=== PATIENT | female | born 1945 | race Caucasian/White ===

== ENCOUNTER → 2020-08-08 07:01 | Outpatient (CLI) | payer MEDICARE, SELFPAY ==
[2020-08-08 20:54] LABS: SARS-CoV-2 RNA PCR Negative
== END ==
PROVIDERS: PCP Internal Medicine; Visit Provider Internal Medicine Gastroenterology
DX: Z01.812 Encounter for preprocedural laboratory examination (principal); Z20.822 Contact with and (suspected) exposure to COVID-19
CPT/HCPCS: C9803; U0003; U0005

== ENCOUNTER 2020-08-12 00:39 | Day surgery (SDC) | payer MEDICARE, SELFPAY ==
[2020-07-30 13:31] VITALS: BMI 31.1
[2020-08-12 06:20] VITALS: BP 153/57; PULSE 74; RESP 20; TEMP 36.7; O2SAT 94
[2020-08-12] MEDS: LACTATED RINGERS 1,000 ML 150 ML IV CONT (06:33)
--- NOTE | 2020-08-12 07:16 | WPDANESEPPF ---
Anes - Initial Pre Proc Eval Procedure: Operation Date: 08/12/20 07:30 Proposed Procedures p Colonoscopy - Angel Doty MD Date/Time: 08/12/20 07:16 Surgeon: Angel Doty MD Pre Op Diagnosis: positive cologuard Patient Data Age: 74 Gender: F Height: 4 ft 11 in Weight: 71.8 kg Last Vital Signs Temp 98.1 F 08/12/20 06:20 Pulse 74 08/12/20 06:20 Resp 20 08/12/20 06:20 BP 153/57 H 08/12/20 06:20 Pulse Ox 94 08/12/20 06:20 Allergies Allergy/AdvReac Type Severity Reaction Status Date / Time No Known Allergies Allergy Verified 08/12/20 06:18 Home Medications Medication Instructions Recorded Confirmed Type aspirin 81 mg PO DAILY 07/30/20 08/12/20 History pvoeqmrsihh-dhkpognao-fdxzdbaz 1 inh INHALATION AC 07/30/20 08/12/20 History [Trelegy Ellipta] pantoprazole 40 mg PO DAILY 07/30/20 08/12/20 History Patient hx anesthesia problems: none Family hx anesthesia problems: none PMFSH Past Medical History Medical History (Updated 08/12/20 @ 07:15 by Genaro Lee MD) COPD (chronic obstructive pulmonary disease) GERD (gastroesophageal reflux disease) Hyperlipidemia Surgical History Surgical History (Updated 08/12/20 @ 07:15 by Genaro Lee MD) H/O right nephrectomy Social History Social History Years smoked: 20 Smoking status: Former smoker Tobacco type: cigarettes Living arrangements: alone Gender identity (if verbalized by the patient): Female Spiritual care concerns: No Anes - Eval Final PreProcedure Day of Procedure 08/12/20 07:16 Patient weight: obese Heart: regular rate and rhythm Lungs: clear to auscultation Airway: Mallampati scale class II Neurological: alert and oriented Last oral intake: >/= 8 hours ASA classification: III Emergent: no Anesthetic plan: proceed Anesthesia type and monitoring: general GIVS and standard monitoring Informed Consent: The patient's anesthetic plan and its attendant risks and benefits were discussed with the patient/family/POA. Questions were solicited and answers provided to the satisfaction of the patient/family/POA.
--- NOTE | 2020-08-12 07:27 | PM.HPGS ---
History of Present Illness History of Present Illness Consent: Risks, benefits, and alternatives have been discussed and questions answered. Patient agrees to proceed with procedure. Chief complaint: positive cologuard Narrative: Barbara Lua is a 74 year old female referred for colon cancer screening. It has been over 10 years since her last colonoscopy. A recent colo guard test was positive Review of Systems Review of Systems: All systems reviewed & are unremarkable except as noted in HPI and below PMFSH Past Medical History Medical History COPD (chronic obstructive pulmonary disease) GERD (gastroesophageal reflux disease) Hyperlipidemia Surgical History Surgical History H/O right nephrectomy Social History Social History Years smoked: 20 Smoking status: Former smoker Tobacco type: cigarettes Living arrangements: alone Gender identity (if verbalized by the patient): Female Spiritual care concerns: No Meds Home Medications and Allergies Home Medications Medication Instructions Recorded Confirmed Type aspirin 81 mg PO DAILY 07/30/20 08/12/20 History wxgnpkstrfl-nbdbiyhiv-xbkislta 1 inh INHALATION AC 07/30/20 08/12/20 History [Trelegy Ellipta] pantoprazole 40 mg PO DAILY 07/30/20 08/12/20 History Allergies Allergy/AdvReac Type Severity Reaction Status Date / Time No Known Allergies Allergy Verified 08/12/20 06:18 Vital Signs Vital Signs - 24 hr 08/12/20 06:20 Temperature 36.7 C Pulse Rate 74 Respiratory Rate 20 Blood Pressure 153/57 H Pulse Oximetry 94 Exam Resp: Auscultation: clear to auscultation bilaterally Cardio: Rate: regular rate Rhythm: regular rhythm GI: GI Palp: Yes Soft to palpation and No Tenderness to palpation present (GI) Assessment and Plan Assessment and plan (1) Colon cancer screening: Code(s): Z12.11 - Encounter for screening for malignant neoplasm of colon Status: Acute Assessment and Plan: Colonoscopy with possible biopsy or polypectomy or cautery or injection of substances.
[2020-08-12 07:44] VITALS: BP 127/61; PULSE 75; RESP 12; O2SAT 98
[2020-08-12 07:54] VITALS: BP 96/51; PULSE 70; RESP 13; O2SAT 98
[2020-08-12 08:04] VITALS: BP 122/61; PULSE 71; RESP 19; O2SAT 99
== END 2020-08-12 08:24 | disposition home or self-care (01) ==
PROVIDERS: PCP Internal Medicine; Visit Provider Internal Medicine Gastroenterology
PROC: 0DJD8ZZ Inspection of Lower Intestinal Tract, Via Natural or Artificial Opening Endoscopic (ICD-10-PCS; CPT 45378; principal; 2020-08-12 07:30)
DX: Z12.11 Encounter for screening for malignant neoplasm of colon (principal); D12.4 Benign neoplasm of descending colon; D12.5 Benign neoplasm of sigmoid colon; R19.5 Other fecal abnormalities; K57.30 Diverticulosis of large intestine without perforation or abscess without bleeding; J44.9 Chronic obstructive pulmonary disease, unspecified; K21.9 Gastro-esophageal reflux disease without esophagitis; E78.5 Hyperlipidemia, unspecified; Z87.891 Personal history of nicotine dependence; Z79.82 Long term (current) use of aspirin; Z90.5 Acquired absence of kidney
CPT/HCPCS: 45385; 45380; 88305; C9803; J2704; J7120; U0003; U0005

== ENCOUNTER 2024-05-23 10:18 | Outpatient (CLI) | payer MEDICARE, SELFPAY ==
--- NOTE | ~2024-05-23 | XR_ITS ---
XR chest 2V 05/23/2024 10:44 Indication: Chronic cough Procedure: 2 view chest Comparison: No prior studies for comparison. Findings: Heart size normal. No focal air space disease, pulmonary edema, pleural effusion or suspect ed pneumothorax. The lungs are hyperinflated which is consistent with, but not diagnostic of chronic obstructive pulmonary disease. Impression: 1: No acute cardiopulmonary disease. Reviewed, dictated and finalized at location B. ICULTURIST Impression: 1: No acute cardiopulmonary disease.
--- OUTSIDE RECORDS SUMMARY | 2024-05-23 10:47 | XMS_ITS | Clinical Summary ---
Author Organization [facility] Medical Office Building B Address [address] [place] [address] Care Team Providers Care Hot Water Heater Installer Name Role Phone Edinson Hansen MD Primary Care Provider Allergies No known active allergies Medications atorvastatin (LIPITOR) 40 mg tablet Take 1 tablet (40 mg total) by mouth daily Active famotidine (PEPCID) 40 mg tablet Take 1 tablet (40 mg total) by mouth 2 (two) times a day Active cyanocobalamin (Vitamin B-12) 1,000 mcg/mL injection Inject 1 mL (1,000 mcg total) under the skin once a week 1xwk x 12 weeks Active albuterol HFA (PROVENTIL HFA,VENTOLIN HFA,PROAIR HFA) 90 mcg/actuation inhalerIndicati ons:Centrilobul ar emphysema (HCC) Inhale 2 puffs every 6 (six) hours as needed for wheezing Active albuterol HFA (PROVENTIL HFA,VENTOLIN HFA,PROAIR HFA) 90 mcg/actuation inhalerIndicati ons:Centrilobul ar emphysema (HCC) Inhale 2 puffs every 6 (six) hours as needed for wheezing or shortness of breath 1 each 4 Active fluticasone-ume clidin-vilanter (Trelegy Ellipta) 100-62.5-25 mcg inhaler Inhale 1 puff daily 30 each 4 Active Active Problems Problem Noted Date Diagnosed Date Cigarette nicotine dependence in remission 12/26 Assessment & Plan (12/27/2023 7:33 PM CDT): LDCT completed 11/2023 She has a nodule that we will follow in one year Chronic obstructive pulmonary disease 12/27/2023 Assessment & Plan (12/27/2023 7:32 PM CDT): Continue Trelegy Ellipta 100 daily Albuterol as needed only, discussed indications for use A!AT results re-requested Chronic respiratory failure with hypoxia, on home O2 therapy ([facility]) 12/27/2023 Assessment & Plan (12/27/2023 7:31 PM CDT): Continue supplemental oxygen for saturations 90% or greater Coronary artery disease 12/27/2023 Assessment & Plan (12/27/2023 7:34 PM CDT): Severe calcifications noted on CT chest. She will discuss further management and workup with her PCM Encounters Date Type Department Care Team Description 05/07/2024 Telephone [facility] Pulmonary at [address] [place] [address] Karoline Chanel LPN Medication Problem from Last 3 Months Surgical History Surgery Date Site/Laterality Comments LAPAROSCOPIC DONOR KIDNEY REMOVAL, LIVING Right Medical History Medical History Date Comments Abdominal hernia COPD (chronic obstructive pulmonary disease) (HC C) GERD (gastroesophageal reflux disease) Arthritis Cigarette nicotine dependence in remission 12/26 Coronary artery disease 12/27/2023 Family History Medical History Relation Name Comments Heart disease Father Stroke Father acute mi Father Alzheimer's disease Mother Parkinsonism Other 1 son Breast cancer Other 2 aunt Relation Name Status Comments Father Mother Other 1 son Other 2 aunt Social History Tobacco Use Types Packs/Day Years Used Date Smoking Tobacco: Former Cigarettes 1 51 1 966 - 2017 Tobacco Cessation:Counseling Given: Not Answered Personal Safety Answer Date Recorded Getting School Help Needed Not on file 04/08 Comments Unknown Sex and Gender Information Value Date Recorded Sex Assigned at Not on file 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 Gender Identity Not on file Sexual Orientation Not on file Obstetrics History Last Filed Vital Signs Vital Sign Reading Time Taken Comments Blood Pressure 130/60 12/27/2023 12:57 PM CDT Pulse 79 12/27/2023 12:57 PM CDT Temperature 36.4 C (97.5 F) 12/27/2023 12:57 PM CDT Respiratory Rate 18 12/27/2023 12:5 7 PM CDT Oxygen Saturation 91% 12/27/2023 12: 57 PM CDT on 3 L O2 Inhaled Oxygen Concentration - - Weight 67.9 kg (149 lb 9.6 oz) 12/27/19 12:57 PM CDT Height 149.9 cm (4' 11 ) 12/27/2023 12: 57 PM CDT Body Mass Index 30.22 12/27/2023 12:57 PM CDT Plan of Treatment Health Maintenance Due Date Last Done Comments Depression Screening 1945 Fall Risk Assessment 1945 Hepatitis C Screening 1945 Hepatitis B Screening 10/07/1963 Lung Cancer Screening 10/07/1995 Zoster Vaccine (1 of 2) 10/07/1995 Well Visit 65+ 2010 Covid-19 Vaccine (3 - season) 2023, 06/16/2020 Influenza Vaccine (#1) 2023 02/24/2020 DTaP/Tdap/Td Vaccine (2 - Tdap) 02/07/2024 4 Osteoporosis Screening-Bone Density Scan 10/30/2025 10/31/2023, 04/12/2021 Pneumococcal vaccine 65+ Completed 02/15/2017, 07/17 Insurance [employer] Care Teams Hot Water Heater Installer Relationship Specialty Start Date End Date Edinson Hansen MD [address] [place] [address] PCP - General Internal Medicine 03/21/23
--- OUTSIDE RECORDS SUMMARY | 2024-05-23 10:47 | XMS_ITS | Referral Summary ---
Author Organization [facility] Medical Office Building B Address [address] [place] [address] Care Team Providers Care Mill Recorder Name Role Phone Edinson Hansen MD Primary Care Provider Encounters Date Type Department Care Team Description 05/07/2024 Telephone [facility] Pulmonary at [address] [place] [address] Karoline Chanel LPN Medication Problem from Last 3 Months Allergies No known active allergies Medications atorvastatin [...] inhaler Inhale 1 puff daily 30 each 11 4 Active Active Problems Problem Noted Date [...] failure with hypoxia, on home O2 therapy ([facility]) 12/27/2023 Assessment & Plan (12/27/2023 7:31 PM CDT): Continue supplemental oxygen for saturations 90% or greater Coronary artery disease 12/27/2023 Assessment & Plan (12/27/2023 7:34 PM CDT): Severe calcifications noted on CT chest. 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
--- OUTSIDE RECORDS SUMMARY | 2024-05-23 10:47 | XMS_ITS | CONTINUITY OF CARE DOCUMENT ---
Author Name sean estrada Address Unknown Organization [facility] Address [address] [place] [address] Phone [phone] Care Team Providers Care Control Systems Designer Name Role Phone Sp HEATH, Hernan Unavailable KENNETH FERRERA MD Unavailable [phone] KENNETH FERRERA MD Unavailable PROBLEMS Condition Status Date Provider Notes Cardiology examination active Hernan Snowden MD Hyperlipidemia active Hernan Snowden MD C O P D active Hernan Snowden MD G E R D active Hernan Snowden MD CAD active Hernan Snowden MD Nephrectomy active Hernan Snowden MD Shortness of breath active Hernan Snowden MD Cardiology examination active Hernan Snowden MD ENCOUNTERS Date Type Provider Location Encounter Diag nosis - In-person encounter Office Visit Hernan Snowden MD [facility] - In-person encounter Office Visit Hernan Snowden MD [facility] Shortness of breath - In-person encounter Office Visit Hernan Snowden MD [facility] Cardiology examinationCardiology examinationHyperlipidemiaC O P DG E R DCADNephrectomy VITAL SIGNS Date Observation Value Provider Body Mass Index (Ratio) 30.09 kg/m2 Justin Snowden MD blood pressure, diastolic 70 mm[Hg] Lucy nunn [place] blood pressure, systolic 134 mm[Hg] Kinjal quezada [place] oxygen saturation, oximetry 93 % Kenia [place] pulse rate 61 /min Kenia [place] respiratory rate E&M 12 /[facility]&M 149 [lb_av] [facility] height E&M 59 [in_i] [facility] blood pressure, cuff size regular An edouard [place] Body Mass Index (Ratio) 30.09 kg/m2 Justin Snowden MD blood pressure, cuff size regular Ke rri Ramu blood pressure, diastolic 80 mm[Hg] Ke rri Ramu blood pressure, systolic 122 mm[Hg] Orlando Guallpa oxygen saturation, oximetry 95 % Shaniqua [place] respiratory rate E&M 16 /min Shaniqua meredith pulse rate 75 /min Shaniqua Verma [facility] weight E&M 149 [lb_av] Shaniqua Verma [facility] height E&M 59 [in_i] Shaniqua Verma [facility] Body Mass Index (Ratio) 30.09 kg/m2 Justin Snowden MD blood pressure, diastolic 88 mm[Hg] Samantha nkLogjudson blood pressure, systolic 140 mm[Hg] Kimber kLogjudson pulse rate 84 /min Maria Fernandachanel Cohen blood pressure, cuff size regular Tomi Cohen blood pressure, diastolic 88 mm[Hg] Ta hadley Cohen blood pressure, systolic 140 mm[Hg] Tab ithchanel Cohen oxygen saturation, oximetry 91 % Maria Fernanda Cohen respiratory rate E&M 12 /min Maria Fernanda Cohen weight E&M 149 [lb_av] Maria Fernanda Cohen height E&M 59 [in_i] Maria Fernanda Cohen ALLERGIES No Known Drug Allergies RESULTS Date Observation Value Provider Reference Range Interpretation Location prothrombin time (patient) 11.2 s [facility] 9.0-11.5 Normal international normalized ratio (INR) 1.0 [facility] Normal basophils as percent of blood leukocytes 1.1 % [facility] Normal eosinophils as percent of blood leukocytes 3.7 % [facility] Normal monocyte count, blood 10.7 % [facility] Normal lymphocyte count, blood 27.1 % [facility] Normal neutrophils as percent of blood leukocytes 57.4 % [facility] Normal basophils, absolute, manual 59 cells/mcL [facility] 0-200 Normal eosinophils, absolute, manual 200 cells/mcL [facility] 15-500 Normal monocytes, absolute, manual 578 cells/mcL [facility] 200-950 Normal lymphocytes, absolute 1463 CELLS/UL [facility] 850-3900 Normal Absolute Neutrophil count 3100 cells/mcL [facility] 4059-1413 Normal mean platelet volume 11.1 fL [facility] 7.5-12.5 Normal platelet count 241 THOUSAND/UL [facility] 140-400 Normal red blood cell distribution width 12.0 % [facility] 11.0-15.0 Normal mean corpuscular hemoglobin concentration, RBC 32.5 G/DL [facility] 32.0-36.0 Normal mean corpuscular hemoglobin, RBC 30.1 pg [facility] 27.0-33.0 Normal mean corpuscular volume, RBC 92.7 fL [facility] 80.0-100.0 Normal hematocrit, blood 39.1 % [facility] 35.0-45.0 Normal hemoglobin electrophoresis, blood 12.7 [facility] 11.7-15.5 Normal erythrocyte (RBC) count 4.22 MILLION/UL [facility] 3.80-5.10 Normal leukocyte (white blood cells) count, blood 5.4 THOUSAND/UL [facility] 3.8-10.8 Normal calcium, serum 9.5 mg/dL [facility] 8.6-10.4 Normal carbon dioxide, venous blood 28 mmol/L [facility] 20-32 Normal chloride, serum 103 mmol/L [facility] 98-110 Normal potassium, serum 4.3 mmol/L [facility] 3.5-5.3 Normal sodium, serum 142 mmol/L [facility] 135-146 Normal urea nitrogen/creatini ne ratio, serum SEE NOTE: (calc) [facility] 6-22 creatinine, serum 0.80 mg/dL [facility] 0.60-1.00 Normal urea nitrogen, blood 13 mg/dL [facility] 7-25 Normal blood glucose, random 87 mg/dL [facility] 65-99 Normal C-reactive protein, by highly sensitive test 2.0 mg/L [facility] <1.0 High LDL Size 223.6 Angstrom [facility] >222.9 LDL particle concentration (lipoprotein panel), risk categories correspond to NCEP categories for LDL cholesterol (on a percentile equivalent basis) 1120 nmol/L [facility] <1138 cholesterol, non-HDL, total 83 MG/DL (CALC) [facility] <130 cholesterol/HDL ratio, serum, percent 2.2 calc [facility] <5.0 LDL cholesterol, serum 67 MG/DL (CALC) [facility] <100 5 triglyceride, serum, fasting 82 mg/dL [facility] <150 5 HDL cholesterol, serum 68 mg/dL [facility] >49 5 cholesterol, serum 151 mg/dL [facility] <200 HISTORY OF MEDICATION USE Medication Status Instructions Dates Provider Indications Com ments albuterol sulfate 90 mcg/actuation HFA aerosol inhaler active Maria Fernanda Coehn famotidine 40 mg tablet active Maria Fernanda Cohen Trelegy Ellipta 100-62.5-25 mcg blister with device active Maria Fernanda Cohen ergocalciferol (vitamin D2) 1,250 mcg (50,000 unit) capsule active Maria Fernanda Cohen atorvastatin 40 mg tablet active Maria Fernanda Cohen SOCIAL HISTORY Date Observation Value Provider alcohol use no Hernan Snowden MD smoking, year quit 2017 Hernan garcia MD cigarette use yes Hernan Gallego smoking status Former smoker Hernan Snowden MD alcohol use no Hernan Snowden MD smoking, year quit 2017 Hernan garcia MD cigarette use yes Hernan Gallego smoking status Former smoker Hernan Snowden MD alcohol use no Hernan Snowden MD smoking, year quit 2016 Hernan garcia MD cigarette use yes Hernan Gallego smoking status Former smoker Hernan Snowden MD INSURANCE PROVIDERS Payer name Policy type / Coverage type [place] red libertarian ID [employer] MED[employer]ARE [employer]AGE [address] 0 003 (HMO POS) Medicare [id number] ADVANCE DIRECTIVES Name Date DISCUSSED - NO DECISION MADE TREATMENT PLAN Date Name Performer Cardiology Hernan Snowden MD Cardiology: H er updated medication list for this problem includes: Atorvastatin 40 Mg Tablet (Atorvastatin) Hernan Snowden MD Cardiology Hernan Snowden MD Cardiology:40% RCA 3 0% OM2 L DL is 67 L ipids well controlled S OB r/o as caused by CAD, maybe more pulmonary in etiology T his visit has been a part of the consistent, comprehensive, and ongoing management of the chronic medical condition(s) listed above for the patient. Hernan Snowden MD Cardiology:She has b aseline sob, has at home oxygen, but only uses it if she is SAT in the <90% W ill do R hrt cath as diastoluc dysfunction is observed on echo Hernan Snowden MD Cardiology:on a stat in already Her updated medication list for this problem includes: Atorvastatin 40 Mg Tablet (Atorvastatin) Hernan Snowden MD Cardiology:Has basel ine sob W ill arrange for a R/L hrt cath to be done as out patient t his sob cannot be r/o as anginal equivalent until angiogram is done. The risks and benefits of the procedure, including but not limited the risk of heart attack, , stroke, bleeding, kidney failure, and loss of limb as well as the alternative of continued medical therapy, stress testing or bypass surgery were discussed with the patient and any present family members and the patient wishes to proceed with cardiac cath and stenting. The patient and family had opportunity to discuss this with us. Written material including informed consent was given out. Hernan Snowden MD Cardiology Hernan Snowden MD Cardiology:Spoken to primary care: no recent PFTs u ses inhalers Hernan Snowden MD Cardiology: H er updated medication list for this problem includes: Famotidine 40 Mg Tablet (Famotidine) Hernan Snowden MD Cardiology:Will obtain labs from PCP Hernan Snowden MD Cardiology:uses inhalers Hernan rojas MD Cardiology: H er updated medication list for this problem includes: Atorvastatin 40 Mg Tablet (Atorvastatin) Hernan Snowden MD Cardiology:Will arra nge for nuclear chemical stress test to assess if ischemia is present, she had a LDCT done to r/o lung cancer that showed severe disease in her cors. She does not exercise frequently and would not be able reach the 85% MPHR required for exercise stress testing Hernan Snowden MD Date Name BASIC METABOLIC PANE L W/EGFR CBC (INCLUDES DIFF/P LT) PROTHROMBIN TIME WIT H INR CardioIQ Advanced Li pid Panel with Inflammation ([facility]) Stress Regadenoson Complete Echo HISTORY OF PROCEDURES Procedure Date Procedure Name Provider Procedure Notes S tatus Complex e/m visit add on Hernan Snowden MD completed Complex e/m visit add on Hernan Snowden MD completed EKG Hernan Snowden MD completed
== END 2024-05-23 10:19 | disposition home or self-care (01) ==
PROVIDERS: PCP Internal Medicine; Visit Provider Internal Medicine
DX: R05.3 Chronic cough (principal)
CPT/HCPCS: 71046

== ENCOUNTER 2025-04-02 10:03 | Outpatient (CLI) | payer MEDICARE, SELFPAY ==
--- NOTE | ~2025-04-02 | XR_ITS ---
EXAMINATION: XR hip LT 2V w AP pelvis, 04/02/2025 10:20 GRINDER OPERATOR HISTORY: pain in left hip, X 2 WKS, NKI COMPARISON: No comparisons available. Findings: No acute fracture or malalignment. No significant degenerative changes. Soft tissues unremarkable. Impression: No acute fracture or malalignment. Reviewed, dictated and finalized at location P. DER OPERATOR Impression: No acute fracture or malalignment.
== END 2025-04-02 10:04 | disposition home or self-care (01) ==
PROVIDERS: PCP Internal Medicine; Visit Provider Internal Medicine
DX: M25.552 Pain in left hip (principal)
CPT/HCPCS: 73502